=== PATIENT | female | born 1960 | race Caucasian/White ===

== ENCOUNTER 2017-02-17 12:26 | Inpatient (IN) | payer MEDICAID ==
[~2017-02-17] VITALS: Ht 165.1 cm; Wt 88.0 kg
--- NOTE | ~2017-02-17 | EC ---
PATIENT:JEFF BOJORQUEZ DATE OF SERVICE: 02/17/17 SEX: F MEDICAL RECORD: [id number] DATE OF : 56 LOCATION:D.MS Ling222 AGE OF PATIENT: 57 ADMISSION DATE: 02/17/17 REFERRING PHYSICIAN: INTERPRETING PHYSICIAN: KHALIF VELÁSQUEZ MD ECHOCARDIOGRAM REPORT ECHO CHARGES 4 ECHO COMPLETE CLINICAL DIAGNOSIS: CVA ECHOCARDIOGRAPHIC MEASUREMENTS (adult normal given) AC root (d.<3.7cm) 3.1 cm LV Septum d (<1.2 cm> 1.4 cm Valve Excursion 1.9 cm LV Septum (systole) 1.8 cm Left Atria (s.<4.0cm> 3.6 cm LVPW d(<1.2cm) 1.2 cm RV (d.<2.3cm) 2.9 cm LVPW (sytole) 1.6 cm LV diastole(<5.6CM) 4.8 cm MV E-F(>70mm/sec) cm LV systole 2.9 cm LVOT Diameter 1.9 cm MV exc.(>10mm) cm Est.ejection fraction (50-75%) % Pericardial Effusion N DOPPLER: LVIT cm/sec A 64.0 cm/sec E 91.0 cm/sec LA cm/sec RVSP 29.0 mmHg LVOT 94.0 cm/sec AOP1/2T 525.0m/s Asc. Ao 102 cm/sec RVOT 47.0 cm/sec RA cm/sec PA 85.0 cm/sec AV Gradient Peak 4.1 mmHg AV Mean 1.9 mmHg AV Area 2.3 cm MV Gradient Peak 3.8 mmHg MV Mean 1.1 mmHg MV Area cm COMMENTS: Machine Cell Tuber: 1 DANITA PLEITEZOE Cable Rigger: 4 Dr. Velásquez TAPE# PACS DATE OF SERVICE: 02/18/2017 PROCEDURE: Transthoracic echocardiogram. FINDINGS: 1. Left ventricle has evidence of left ventricular hypertrophy with normal inflow characteristics. Ejection fraction that is 55%. There are no obvious regional wall motion abnormalities. 2. The left atrium, normal size, normal function. 3. The mitral valve is not well visualized, but does appear to be grossly ECHOCARDIOGRAM REPORT [id number] JEFF BOJORQUEZ normal. 4. The tricuspid valve grossly normal. There is no obvious tricuspid regurgitation and RVSP is normal. 5. The right atrium is normal size, normal function. 6. The right ventricle is normal size, normal function. 7. Aortic valve appears to be a trileaflet structure with mild aortic regurgitation, otherwise normal. CONCLUSIONS: The patient with evidence of mild hypertensive heart disease with mild aortic insufficiency, otherwise normal function. TRANSINT:[id number] Voice Confirmation ID: [id number] DOCUMENT ID: [id number] 02/25/2017 Edited to correct date of service, dm. KHALIF VELÁSQUEZ MD at 1522 CC: [id number] DICTATION DATE: 02/21/17 0907 LUNG PULLER: 02/21/17 1350 DIS IN 02/22/17 [facility] [address] [place] [address]
[~2017-02-17 12:26] MED LIST: AMITRIPTYLINE100 MG PO; BAYER CHEWABLE81 MG PO; IBUPROFEN400 MG PO; LISINOPRIL2.5 MG PO; NORCO 7.5/325 T1 TA1 PO; PEPCID20 MG PO; XANAX1 MG PO; XARELTO15 MG PO; ZANAFLEX4 MG PO; ZOFRAN4 MG PO
[2017-02-17 13:06] LABS: BASOPHILS 0.4 % (0-2); EOSINOPHILS 3.1 % (0-7); HEMOGLOBIN 13.3 g/dL (12-16); IMMATURE GRANULOCYTES 0.4 % (0-5); LYMPHOCYTES 35.8 % (15-50); MCH 29.3 pg (26.0-34.0); MCHC 32.4 g/dL (31.0-37.0); MCV 90.3 fL (80.0-100.0); MEAN PLATELET VOLUME 9.5 fL (7.4-10.4); NEUTROPHILS 52.3 % (40-80); PLATELET COUNT 277 10x3/uL (130-400); RBC 4.54 10x6/uL (4.00-5.40); RDW 13.1 % (11.5-14.5); WBC 7.2 10x3/uL (4.8-10.8)
[2017-02-17 13:26] LABS: ALBUMIN 3.7 g/dL (3.4-5.0); ANION GAP 13.3 mmol/L (8-16); BILIRUBIN - TOTAL 0.24 mg/dL (0.2-1.3); CALCIUM 9.7 mg/dL (8.5-10.1); CARBON DIOXIDE 28.8 mmol/L (21.0-32.0); CREATININE - SERUM 1.3 mg/dL (0.6-1.3); POTASSIUM - SERUM 4.1 mmol/L (3.5-5.1); PROTEIN - SERUM 7.8 g/dL (6.4-8.2)
[2017-02-17 13:28] LABS: APTT 31.4 SECONDS (22.8-39.4); INR 1.14 (0.85-1.17); PROTIME 14.2 SECONDS (11.6-15.0)
[2017-02-17] MEDS ORDERED: XARELTO20 MG PO (19:27)
[2017-02-17] MEDS ORDERED: KEPPRA250 MG PO (19:27)
[2017-02-17] MEDS ORDERED: PHENERGAN25 M1 PO (19:28)
[2017-02-17 22:10] VITALS: BP 163/87; BMI 33.1
[2017-02-17 22:28] VITALS: BP 163/87
[2017-02-18 02:16] VITALS: BP 160/86
[2017-02-18 04:00] VITALS: BP 102/63
[2017-02-18 08:57] VITALS: BP 119/64
[2017-02-18 12:56] VITALS: BP 111/62
[2017-02-18 14:12] VITALS: Ht 165.1 cm; Wt 88.0 kg
[2017-02-18 14:36] LABS: HEMOGLOBIN A1C 6.9 % (4.8-6.0)
[2017-02-18 21:43] VITALS: BP 124/78
[2017-02-19 00:10] VITALS: BP 97/70
[2017-02-19 04:21] VITALS: BP 159/81
[2017-02-19 08:34] VITALS: BP 156/90
[2017-02-19 12:05] VITALS: BP 170/83
[2017-02-19 16:07] VITALS: BP 167/91
[2017-02-19 22:01] VITALS: BP 172/91
[2017-02-20] VITALS (7 sets, daily range): BP systolic 124–170; BP diastolic 75–95
[2017-02-21 04:29] VITALS: BP 166/89
[2017-02-21 08:44] VITALS: BP 180/90
[2017-02-21 12:34] VITALS: BP 162/92
[2017-02-21 17:18] VITALS: BP 175/99
[2017-02-21 21:17] VITALS: BP 173/84
[2017-02-22 00:44] VITALS: BP 164/78
[2017-02-22 06:49] VITALS: BP 163/89
[2017-02-22 08:45] VITALS: BP 184/98
[2017-02-22] MEDS ORDERED: ZESTRIL40 MG PO (09:31)
[2017-02-22] MEDS ORDERED: LOPRESSOR25 MG PO (09:31)
[2017-02-22] MEDS ORDERED: GLUCOPHAGE500 MG PO (09:33)
== END 2017-02-22 11:15 | disposition home or self-care (01) | DRG 65 ==
LOC: D.ER 12:26 → D.MS 16:39
PROVIDERS: Emergency Medicine; Family Medicine
DX: I63.9 Cerebral infarction, unspecified (principal); I69.951 Hemiplegia and hemiparesis following unspecified cerebrovascular disease affecting right dominant side; R13.10 Dysphagia, unspecified; R53.1 Weakness; R51 Headache; Z86.718 Personal history of other venous thrombosis and embolism; I11.0 Hypertensive heart disease with heart failure; I50.9 Heart failure, unspecified; M19.90 Unspecified osteoarthritis, unspecified site; E66.9 Obesity, unspecified; Z71.3 Dietary counseling and surveillance; Z68.33 Body mass index [BMI] 33.0-33.9, adult; R47.1 Dysarthria and anarthria; F41.9 Anxiety disorder, unspecified; G47.00 Insomnia, unspecified

== ENCOUNTER 2018-03-27 13:13 | Day surgery (SDC) | payer MEDICAID ==
[~2018-03-27] VITALS: Ht 165.1 cm; Wt 76.8 kg
[~2018-03-27 13:13] MED LIST changes: +GLUCOPHAGE500 MG PO; +KEPPRA250 MG PO; +LOPRESSOR25 MG PO; +PHENERGAN25 M1 PO; +XARELTO20 MG PO; +ZESTRIL40 MG PO
[2018-03-27 13:46] LABS: HEMATOCRIT 42.5 % (36.0-48.0); HEMOGLOBIN 14.2 g/dL (12-16); MCH 29.2 pg (26.0-34.0); MCHC 33.4 g/dL (31.0-37.0); MCV 87.4 fL (80.0-100.0); MEAN PLATELET VOLUME 9.3 fL (7.4-10.4); RBC 4.86 10x6/uL (4.00-5.40); RDW 13.1 % (11.5-14.5); WBC 12.4 10x3/uL (4.8-10.8)
[2018-03-27 13:52] LABS: ANION GAP 17.3 mmol/L (8-16); CALCIUM 10.2 mg/dL (8.5-10.1); CARBON DIOXIDE 24.7 mmol/L (21.0-32.0); CREATININE - SERUM 1.3 mg/dL (0.6-1.3)
[2018-03-27 15:31] LABS: APTT 27.5 SECONDS (22.8-39.4); INR 0.95 (0.85-1.17); PROTIME 12.2 SECONDS (11.6-15.0)
[2018-03-27] MEDS ORDERED: LISINOPRIL10 MG PO (16:00)
[2018-03-27 16:05] VITALS: BP 153/87; Ht 165.1 cm; Wt 76.8 kg
--- NOTE | 2018-03-27 16:37 | NUR ---
10-12 CRE BALLOON USED TO DIALTE ESOPHAGUS TIMES TWO ATTEMPTS.
--- NOTE | 2018-03-27 18:25 | NUR ---
[address] WHITING, REPORT GIVEN PT REPORTS A REGULAR HEADACHE RATES 08/16. DESIRES TO BE RELEASED HOME.
--- NOTE | 2018-03-29 09:41 | OP ---
PATIENT NAME: JEFF BOJORQUEZ MEDICAL RECORD: [id number] :56 LOCATION:[facility] ADMISSION DATE: SURGEON: ANGELA WHITING DO DATE OF OPERATION: 03/27/2018 PROCEDURE: EGD with biopsies and balloon dilation. INDICATION FOR PROCEDURE: Dysphagia, nausea and vomiting, generalized abdominal pain, and abnormal weight loss. SCOPE: Olympus video gastroscope. MEDICATIONS: Propofol 360 mg IV per anesthesia. ESTIMATED BLOOD LOSS: Minimal. COMPLICATIONS: None. FINDINGS: Informed consent was given. The patient was made comfortable with the above medication. After reaching an adequate level of sedation by slow IV push, the patient was placed on her left side. The endoscope was advanced under direct visualization through the mouth to the second portion of the duodenum. The upper third of the esophagus appeared normal. In the middle and distal thirds of the esophagus, there were severe erosive esophagitis with ulcerations present. There was a stricture located at 35 cm, which was approximately 8 mm in diameter and spanned only approximately a millimeter. The endoscope could not traverse the stricture prior to dilation. A CRE dilating balloon was placed through the working channel and across the stricture. The stricture was dilated with a 10-12 mm dilating balloon up to 12 mm successfully. Cold forceps biopsies were taken from the stricture. The endoscope was able to traverse the stricture after dilation. At the GE junction, there was some granulation tissue, which was biopsied to submit for histopathology. The endoscope was advanced beyond GE junction into the stomach and retroflexed to view the cardia, which appeared normal. The patient has had previous surgery involving the stomach in the form of gastric bypass, which has since been reversed. This was evident as there appeared to be gastrogastric anastomosis. There was some granulation tissue at this site, which was biopsied to submit for histopathology. As the endoscope was advanced into the antrum of the actual stomach, the mucosa appeared normal. Random cold forceps biopsies were taken to submit for histopathology and to rule out the presence of H. pylori. The endoscope was advanced into the duodenum, which appeared normal down to the second portion. The endoscope was then withdrawn back into the stomach. The 10-12 mm dilating balloon was then placed through the working channel again and the endoscope was pulled back up into the esophagus. The stricture was again dilated to 12 mm. Dilation was successful. The endoscope and catheter were then withdrawn from the patient. The patient tolerated the procedure well and there were no complications. IMPRESSIONS: 1. Severe erosive esophagitis with ulcerations present in the middle and distal thirds of the esophagus. 2. Esophageal stricture located at 35 cm. This was dilated to 12 mm successfully and biopsied with cold forceps. 3. Evidence of prior intervention involving the stomach. 4. Granulation tissue located at the anastomosis from previous surgery, which OPERATIVE REPORT [id number] ALINA BOJORQUEZALEJO OLIVEROS was biopsied. PLAN AND RECOMMENDATIONS: 1. Discharge home when recovery parameters are met. 2. Follow up biopsy specimen results. 3. GERD diet and reflux precautions. 4. We will initiate omeprazole 40 mg daily and Carafate 1 gram t.i.d. 5. We will plan on a repeat upper endoscopy in 3-4 weeks with repeat dilation to extend the diameter of the stricture in the distal esophagus. 6. Further biopsies will be taken at that time of any inflammation present. TRANSINT:[id number] Voice Confirmation ID: [id number] DOCUMENT ID: [id number] ANGELA WHITING DO at 0941 CC: [id number] DICTATION DATE: 03/27/18 1650 CAREER DEVELOPMENT SPECIALIST: 03/27/18 2340 [facility] 03/27/18 [facility] [address] [place] [address]
== END 2018-03-27 18:45 | disposition home or self-care (01) ==
LOC: D.OPS 13:13
PROVIDERS: Anesthesiology
DX: R13.10 Dysphagia, unspecified (principal); K22.10 Ulcer of esophagus without bleeding; K22.2 Esophageal obstruction; Z01.812 Encounter for preprocedural laboratory examination

== ENCOUNTER 2018-04-17 08:54 | Day surgery (SDC) | payer MEDICAID ==
[~2018-04-17] VITALS: Ht 165.1 cm; Wt 77.3 kg
[~2018-04-17 08:54] MED LIST changes: +LISINOPRIL10 MG PO
[2018-04-17 09:14] LABS: HEMATOCRIT 40.5 % (36.0-48.0); HEMOGLOBIN 13.4 g/dL (12-16); MCH 29.1 pg (26.0-34.0); MCHC 33.1 g/dL (31.0-37.0); MCV 87.9 fL (80.0-100.0); MEAN PLATELET VOLUME 8.9 fL (7.4-10.4); RBC 4.61 10x6/uL (4.00-5.40); RDW 13.2 % (11.5-14.5); WBC 12.5 10x3/uL (4.8-10.8)
[2018-04-17 09:27] LABS: APTT 27.2 SECONDS (22.8-39.4); INR 1.02 (0.85-1.17); PROTIME 12.9 SECONDS (11.6-15.0)
[2018-04-17 09:28] LABS: ANION GAP 17.2 mmol/L (8-16); CALCIUM 9.2 mg/dL (8.5-10.1); CARBON DIOXIDE 25.6 mmol/L (21.0-32.0); CREATININE - SERUM 1.4 mg/dL (0.6-1.3); POTASSIUM - SERUM 3.8 mmol/L (3.5-5.1)
[2018-04-17] MEDS ORDERED: CARAFATE1 G (09:30)
[2018-04-17 09:36] VITALS: BP 119/88; Ht 165.1 cm; Wt 77.3 kg
--- NOTE | 2018-04-17 11:57 | NUR ---
DC INSTRUCTIONS GIVEN TO PT/FAMILY. STATE UNDERSTANDING. DC'D IV CATH FULLY INTACT.
--- NOTE | 2018-04-17 12:01 | NUR ---
PT LEFT UNIT VIA WC AT 1201
--- NOTE | 2018-04-18 12:17 | OP ---
PATIENT NAME: JEFF BOJOQRUEZ MEDICAL RECORD: [id number] :56 LOCATION:[facility] ADMISSION DATE: SURGEON: ANGELA WHITING DO DATE OF OPERATION: 04/17/2018 PROCEDURE: EGD with balloon dilation and biopsies. INDICATION FOR PROCEDURE: Dysphagia, nausea and vomiting, generalized abdominal pain, and abnormal weight loss. SCOPE: Olympus video gastroscope. MEDICATIONS: Propofol 180 mg IV per anesthesia. ESTIMATED BLOOD LOSS: Minimal. COMPLICATIONS: None. FINDINGS: Informed consent was given. The patient was made comfortable with the above medication. After reaching adequate level of sedation by slow IV push, the patient was placed on her left side. The endoscope was advanced under direct visualization through the mouth to the second portion of the duodenum. The upper third of the esophagus appeared normal. In middle and distal thirds of the esophagus, there was severe erosive esophagitis with ulcerations present. There was significant sloughing of esophageal mucosa. There was a stricture located at 35 cm, which the endoscope could not pass prior to dilation. A 13.5-15.5 CRE dilating balloon was placed through the working channel of the endoscope and the stricture was dilated up to 13.5 mm successfully. This allowed the endoscope to pass the site into the stomach. There was evidence of prior intervention in the stomach. There was some erythema and granularity, consistent with gastritis in the stomach. The endoscope was advanced into the duodenum, which appeared normal. The endoscope was then withdrawn back into the esophagus and biopsies were taken from the stricture itself. The endoscope was withdrawn from the patient. The patient tolerated the procedure well and there were no complications. IMPRESSION: 1. Severe erosive esophagitis with ulcerations in middle and distal thirds of the esophagus. 2. Significant amount of sloughing tissue of the esophageal mucosa. 3. Esophageal stricture located at 35 cm. This was dilated to 13.5 mm on today's examination. Previously, this site was dilated to 12 mm. 4. There was a hiatal hernia visualized involving the cardia of the stomach. 5. Evidence of prior intervention in the stomach. 6. Gastritis. PLANS AND RECOMMENDATIONS: 1. Discharge home when recovery parameters are met. 2. Follow up biopsy specimen results. 3. GERD diet and reflux precautions. 4. Repeat EGD in 2 weeks with further dilation as indicated. 5. Continue current medications. TRANSINT:[id number] Voice Confirmation ID: [id number] DOCUMENT ID: [id number] OPERATIVE REPORT [id number] JEFF BOJORQUEZ,ANGELA Chan DO at 1217 CC: [id number] DICTATION DATE: 04/17/18 1100 AIR TECHNICIAN: 04/17/18 1216 [facility] 04/17/18 [place] [id number]
== END 2018-04-17 12:01 | disposition home or self-care (01) ==
LOC: D.OPS 08:54
PROVIDERS: Anesthesiology; ATTEND Internal Medicine Gastroenterology
DX: K22.10 Ulcer of esophagus without bleeding (principal); K44.9 Diaphragmatic hernia without obstruction or gangrene; K22.2 Esophageal obstruction; K29.70 Gastritis, unspecified, without bleeding; Z01.812 Encounter for preprocedural laboratory examination

== ENCOUNTER → 2018-05-03 09:12 | Day surgery (SDC) | payer MEDICAID ==
[~2018-05-03] VITALS: Ht 165.1 cm; Wt 75.9 kg
--- NOTE | ~2018-05-03 | OP ---
PATIENT NAME: JEFF BOJORQUEZ MEDICAL RECORD: [id number] :56 LOCATION:[facility] ADMISSION DATE: SURGEON: ANGELA WHITING DO DATE OF OPERATION: 05/03/2018 PROCEDURE: EGD with balloon dilation of the esophagus. INDICATION FOR PROCEDURE: Dysphagia and a known stricture of the esophagus. This is a 2-week follow up for further dilation. SCOPE: Olympus video gastroscope. MEDICATIONS: Propofol 150 mg IV per anesthesia. ESTIMATED BLOOD LOSS: Minimal. COMPLICATIONS: None. FINDINGS: Informed consent was given. The patient was made comfortable with the above medication. After reaching an adequate level of sedation by slow IV push, the patient was placed on her left side. The endoscope was advanced under direct visualization through the mouth to the second portion of the duodenum with ease. The upper and middle thirds of the esophagus appeared normal. In the distal third of the esophagus at approximately 35 cm, the previously identified stricture was again encountered. The endoscope was able to traverse the site prior to balloon dilation. The previously identified severe erosive esophagitis with ulcerations has improved significantly. There were no ulcers present on today's examination. There was no sloughing of esophageal mucosa seen either. There was evidence of reflux esophagitis. The endoscope was advanced into the stomach and retroflexed to view the cardia and fundus. There was evidence of prior intervention with proximal and distal gastric pouches. The mucosa of the stomach reveals erythema and granularity, consistent with gastritis. The endoscope was advanced beyond the pylorus into the duodenum, which appeared normal down to the second portion. The endoscope was then withdrawn back into the stomach. A 13.5- to 15.5-cm CRE dilating balloon was placed through the working channel. The endoscope was brought back up to the stricture and this was dilated up to 15 mm maximum diameter successfully. The balloon was then removed from the endoscope. The site was inspected. There was a small mucosal tear visualized. There was no significant bleeding. The endoscope was then withdrawn from the patient. The patient tolerated the procedure well and there were no complications. IMPRESSION: 1. Esophageal stricture located at 35 cm. This was dilated to 15 mm diameter on today's examination. 2. Reflux esophagitis. 3. Prior intervention in the stomach. 4. Gastritis. PLAN AND RECOMMENDATIONS: 1. Discharge home when recovery parameters are met. 2. GERD diet and reflux precautions. 3. Continue current medications. 4. Repeat EGD in 2-3 weeks for further dilations as indicated. OPERATIVE REPORT [id number] JEFF BOJORQUEZ TRANSINT:[id number] Voice Confirmation ID: [id number] DOCUMENT ID: [id number] ANGELA WHITING DO CC: [id number] DICTATION DATE: 05/03/18 1308 MORNING SHOW HOST: 05/03/18 1511 [address] [place] [id number] [place] [address]
[~2018-05-03 09:12] MED LIST changes: +CARAFATE1 G PO
[2018-05-03 10:11] VITALS: BP 144/78; Ht 165.1 cm; Wt 75.9 kg
[2018-05-03 10:17] LABS: HEMATOCRIT 40.9 % (36.0-48.0); HEMOGLOBIN 13.5 g/dL (12-16); MCH 29.2 pg (26.0-34.0); MCV 88.5 fL (80.0-100.0); MEAN PLATELET VOLUME 9.7 fL (7.4-10.4); RBC 4.62 10x6/uL (4.00-5.40); RDW 13.4 % (11.5-14.5); WBC 8.8 10x3/uL (4.8-10.8)
--- NOTE | 2018-05-03 12:53 | NUR ---
1252-13.5-15.5 CRE BALLOON USED INFLATE 43 CITIZEN OF [place].
--- NOTE | 2018-05-03 14:23 | NUR ---
IV D/C'D WITH CANNULA INTACT. VSS. NO COMPLAINTS. DISCHARGE INSTRUCTIONS GIVEN. VERBALIZED AN UNDERSTANDING
== END | disposition home or self-care (01) ==
LOC: D.OPS 09:12
PROVIDERS: ATTEND Internal Medicine Gastroenterology
DX: K22.2 Esophageal obstruction (principal); K21.0 Gastro-esophageal reflux disease with esophagitis; K29.70 Gastritis, unspecified, without bleeding; Z01.812 Encounter for preprocedural laboratory examination

== ENCOUNTER 2018-05-17 10:01 | Day surgery (SDC) | payer MEDICAID ==
[~2018-05-17] VITALS: Ht 165.1 cm; Wt 77.3 kg
[2018-05-17 10:21] LABS: HEMATOCRIT 39.9 % (36.0-48.0); HEMOGLOBIN 13.2 g/dL (12-16); MCH 28.6 pg (26.0-34.0); MCHC 33.1 g/dL (31.0-37.0); MCV 86.4 fL (80.0-100.0); MEAN PLATELET VOLUME 9.2 fL (7.4-10.4); RBC 4.62 10x6/uL (4.00-5.40); RDW 13.1 % (11.5-14.5); WBC 9.9 10x3/uL (4.8-10.8)
[2018-05-17 10:31] LABS: ANION GAP 12.3 mmol/L (8-16); CALCIUM 9.7 mg/dL (8.5-10.1); CARBON DIOXIDE 29.9 mmol/L (21.0-32.0); CREATININE - SERUM 0.9 mg/dL (0.6-1.3); POTASSIUM - SERUM 4.2 mmol/L (3.5-5.1)
[2018-05-17 10:36] VITALS: Ht 165.1 cm; Wt 77.3 kg
--- NOTE | 2018-05-17 14:01 | OP ---
PATIENT NAME: JEFF BOJORQUEZ MEDICAL RECORD: [id number] :56 LOCATION:[facility] ADMISSION DATE: SURGEON: ANGELA WHITING DO DATE OF OPERATION: 05/17/2018 PROCEDURE: EGD with balloon dilation. INDICATIONS FOR PROCEDURE: Dysphagia and a known esophageal stricture. SCOPE: Olympus video gastroscope. MEDICATIONS: Propofol 180 mg IV per anesthesia. ESTIMATED BLOOD LOSS: Minimal. COMPLICATIONS: None. FINDINGS: Informed consent was given. The patient was made comfortable with the above medication. After reaching an adequate level of sedation by slow IV push, the patient was placed in the left side. The endoscope was advanced under direct visualization through the mouth to the second portion of the duodenum with ease. The upper and middle thirds of the esophagus appeared normal. In the distal third of the esophagus at approximately 35 cm, the previously identified stricture was again encountered. The endoscope was able to traverse the site prior to balloon dilation. The previously identified reflux esophagitis was present. There were no ulcers located at the GE junction on today's examination. The endoscope was advanced into the stomach and retroflexed to view the cardia and fundus. There was evidence of a prior intervention with proximal and distal gastric pouches. The mucosa of the stomach had some erythema and granularity consistent with possible gastritis. This has been biopsied multiple times in the past and has been benign. The endoscope was advanced beyond the pylorus into the duodenum which appeared normal down to the second portion. The endoscope was then withdrawn back into the stomach and a 16-18 mm CRE dilating balloon was placed through the working channel. The endoscope was brought back up into the stricture site and the balloon was passed across the stricture. The stricture was dilated up to 17 mm maximum diameter successfully. The balloon was then removed from the endoscope. The site was inspected. There was no significant bleeding. The endoscope was then withdrawn from the patient. The patient tolerated the procedure well and there were no complications. IMPRESSION: 1. Esophageal stricture located at 35 cm. This was dilated to 17 mm successfully. 2. Reflux esophagitis. 3. Prior intervention in the stomach. 4. Gastritis. PLAN AND RECOMMENDATIONS: 1. Discharge home when recovery parameters are met. 2. GERD diet and reflux precautions. 3. Continue current medications. 4. Repeat EGD as needed for dysphagia. TRANSINT:[id number] Voice Confirmation ID: [id number] DOCUMENT ID: [id number] OPERATIVE REPORT [id number] JEFF BOJORQUEZ,ANGELA Chan DO at 1401 CC: [id number] DICTATION DATE: 05/17/181211 CHAIRMAN AND CHIEF EXECUTIVE OFFICER: 05/17/18 1242 [facility] [place] [id number] [place] [id number]
== END 2018-05-17 13:00 | disposition home or self-care (01) ==
LOC: D.OPS 10:01
PROVIDERS: Anesthesiology; ATTEND Internal Medicine Gastroenterology
DX: K22.2 Esophageal obstruction (principal); K21.0 Gastro-esophageal reflux disease with esophagitis; K29.70 Gastritis, unspecified, without bleeding; Z01.812 Encounter for preprocedural laboratory examination

== ENCOUNTER 2018-06-12 08:52 | Inpatient (IN) | payer MEDICAID ==
[2018-06-09 11:26] LABS: HEMATOCRIT 38.7 % (36.0-48.0); HEMOGLOBIN 13.1 g/dL (12-16); MCH 28.7 pg (26.0-34.0); MCHC 33.9 g/dL (31.0-37.0); MCV 84.7 fL (80.0-100.0); MEAN PLATELET VOLUME 9.4 fL (7.4-10.4); RBC 4.57 10x6/uL (4.00-5.40); RDW 12.8 % (11.5-14.5); WBC 15.9 10x3/uL (4.8-10.8)
[2018-06-09 11:29] LABS: ANION GAP 16.2 mmol/L (8-16); CALCIUM 9.5 mg/dL (8.5-10.1); CARBON DIOXIDE 24.9 mmol/L (21.0-32.0); POTASSIUM - SERUM 4.1 mmol/L (3.5-5.1)
[2018-06-09 11:31] LABS: APTT 27.4 SECONDS (22.8-39.4); INR 0.99 (0.85-1.17); PROTIME 12.6 SECONDS (11.6-15.0)
[2018-06-12] VITALS (13 sets, daily range): BP systolic 73–139; BP diastolic 51–92; BMI 27.8; BMI 28.3
--- NOTE | 2018-06-12 13:40 | NUR ---
RECEIVED TO ROOM 2210 VIA BED FROM PACU. A/O X3. VSS. C/O NAUSEA AT THIS TIME. WILL MONITOR.
--- NOTE | 2018-06-12 14:30 | NUR ---
BP CONTINUES TO FALL. DR. GUARDADO NOTIFIED OF SAME. NEW ORDERS RECEIVED. BOLUS INITIATED.
--- NOTE | 2018-06-12 14:30 | OP ---
PATIENT NAME: JEFF BOJORQUEZ MEDICAL RECORD: [id number] :56 LOCATION:D.MS [id number] ADMISSION DATE: SURGEON: EDNA GUARDADO MD DATE OF OPERATION: 06/12/2018 SURGEON: Edna Guardado MD LOG BUNCHER: Yoselin Camarena. PREOPERATIVE DIAGNOSES: 1. Dysphagia, esophageal stricture, severe protein malnutrition, history of multiple bariatric operations. 2. History of pulmonary embolism. 3. Diabetes. POSTOPERATIVE DIAGNOSES: 1. Dysphagia, esophageal stricture, severe protein malnutrition, history of multiple bariatric operations. 2. History of pulmonary embolism. 3. Diabetes. PROCEDURE PERFORMED: 1. Laparoscopic lysis of adhesions requiring greater than 50% of the operative time due to 2 previous open gastric bariatric procedures. 2. Mika gastrostomy with gastrojejunostomy feeding tube placement. ANESTHESIA: General. COMPLICATIONS: None. Case was clean contaminated. ESTIMATED BLOOD LOSS: 300 mL. OPERATIVE COURSE: After consent was obtained, the patient was taken to the operating room and placed in the supine position on the operating table. Next, general anesthesia was given via endotracheal intubation. After a timeout was taken to confirm the correct patient and procedure, local anesthetic was injected into the right upper quadrant. A stab incision was made with 11-blade scalpel. Using a 5-mm bladeless optical trocar, the abdomen was entered under direct laparoscopic vision. Adequate pneumoperitoneum was achieved. There was dense adhesive disease throughout the midline and upper abdomen. A second 5-mm trocar was placed under direct laparoscopic vision into the right lateral quadrant. Laparoscopic lysis of adhesions was performed using laparoscopic Metzenbaum scissors and Harmonic scalpel. Once the midline was clear, a 12-mm trocar was placed just above the umbilicus under direct laparoscopic vision and an additional 5-mm trocar was placed in the left lateral quadrant. Extensive adhesiolysis was performed continuing to identify the gastric anatomy. The anterior surface of the stomach was freed from the posterior surface of the liver all the way to the level of the crura. At this time, the transverse mesocolon was retracted cephalad. The small bowel anatomy could not be defined at this time. The patient appears to have had a previous retrocolic gastric bypass. She had a gastric bypass reversal 3 years later. There were 2 portions of small bowel coming through the transverse mesocolon. It was unable to tell which of these was the true ligament of Treitz. The loops were followed into OPERATIVE REPORT [id number] JEFF BOJORQUEZWallace the mid portion of small bowel, at which time a jejunojejunostomy was identified. At this time, due to the nondelineated anatomy a gastrojejunostomy was not performed. A small upper midline incision was made with a 10-blade scalpel. Dissection at the level to the subcutaneous tissue was with electrocautery. The fascia was opened with electrocautery. At this time, the pneumoperitoneum was relieved. The anterior surface of the stomach was grabbed with a Tracy clamp. Pursestring sutures were placed into the anterior surface of the stomach with 2-0 silk sutures. A gastrotomy was made with electrocautery. A gastrojejunostomy tube was placed to the left upper quadrant. It was advanced through the gastrotomy and directly placed through the pylorus. The gastrojejunostomy was advanced through the duodenum. The pursestring sutures were tied. The balloon was inflated. The stomach was secured to the anterior abdominal wall using 2-0 silk suture. The fascia was then closed with looped PDS. The skin was closed with skin laura. The scope was reinserted in the abdomen. The abdominal cavity was inspected. It was copiously irrigated and suctioned. There was no evidence of bowel injury. No evidence of bleeding. At this time, all remaining instruments were removed. The abdomen was desufflated. Trocars were removed. Skin was closed with 4-0 Monocryl. Remaining trocar sites were closed with laura. At the end of the case, all needle and instrument counts were correct. No complications occurred. The patient was extubated and transferred to the PACU in stable condition. TRANSINT:[id number] Voice Confirmation ID: [id number] DOCUMENT ID: [id number] EDNA GUARDADO MD at 1430 CC: [id number] DICTATION DATE: 06/12/18 1236 ENVIRONMENTAL COORDINATOR: 06/12/18 1330 REG [facility] [address] [place] [address]
[2018-06-12 15:44] LABS: HEMATOCRIT 26.3 % (36.0-48.0); HEMOGLOBIN 8.7 g/dL (12-16)
--- NOTE | 2018-06-12 15:45 | NUR ---
BP CONTINUES TO FALL WITH BOLUS DOSE UP. RAPID RESPONSE CALLED. WILL MONITOR.
--- NOTE | 2018-06-12 16:10 | NUR ---
TRANSFERRED TO CVICU VIA BED.
--- NOTE | 2018-06-12 16:15 | NUR ---
PT ARRIVED IN THE UNIT. PT SKIN COLOR PALE. PT ON 6L VIA NC. CVL NOTED TO RIGHT SUBCLAVIAN CVL NOTED. DRESSING C/D/I. FLUID BOLUSES INFUSING ON ARRIVAL. DRIVING NOTED OVER ABD C/D/I WITH A FEEDING TUBE STICKING OUT OF THE DRESSING. ABD ROUND AND SOFT. PT HYPOTENSIVE AND BRADYCADIC. BLOOD PRODUCTS WARMING AND WILL BE TRANSFFUSED MAHNAZ. PT HOOKED TO ICU MONITORS. WILL CONT POC.
--- NOTE | 2018-06-12 16:41 | NUR ---
FIRST BLOOD PRODUCT CHECKED WITH ANOTHER NURSE. PT GAVE VERBAL CONSENT TO ACCEPT BLOOD PRODUCTS. PRBC INFUSING.
--- NOTE | 2018-06-12 16:44 | NUR ---
SPOKE WITH DR GUARDADO, ORDERS FOR TOTAL OF 4 PRBCS, 2 FFP, 1 PLATELETS, SPOKE WITH DR EARL, ORDERS FOR PT INR AND PTT, SPOKE WITH LAB AND ADDED ON TO LAST LAB DRAW
--- NOTE | 2018-06-12 16:55 | NUR ---
SPOKE WITH DR SHIRA RAMSAY AND UPDATED HER ON THE PTS CONDITION. CONT CURRENT POC WITH BLOOD.
[2018-06-12 17:13] LABS: APTT 27.7 SECONDS (22.8-39.4); INR 1.44 (0.85-1.17); PROTIME 16.9 SECONDS (11.6-15.0)
--- NOTE | 2018-06-12 17:20 | NUR ---
1 UNIT OF BLOOD STILL INFUSING. BP 49/21. 2 UNIT INITIATED AND PRESSURE BAG APPLIED. BP RECHECKED AND SBP WOULD NO REGISTAR. PT PALE IN COLOR AND COOL. HR 120. DR GUARDADO PAGED AND YARD CLEANER CALLED TO GET THE REMAININ PRBC'S. DR GUARDADO STATED TO GET THE PT TO THE OR NOW. YARD CLEANER ARRIVED. BLOOD PRODUCTS SENT TO THE OR WITH THE OR TEAM.
--- NOTE | 2018-06-12 18:44 | NUR ---
DR. GUARDADO LEFT 7 LAPS IN FOR PACKING
--- NOTE | 2018-06-12 20:30 | NUR ---
PAGED R/T ABG RESULTS, UPDATE GIVEN, ORDERS RECEIVED 150MEQ BICARB IN 1L D5W TO INFUSE AT 70ML/HR, NO FURTHER AT THIS TIME
--- NOTE | 2018-06-12 21:00 | NUR ---
AT BEDSIDE, UPDATE GIVEN
--- NOTE | 2018-06-12 21:44 | NUR ---
PAGED R/T PO MEDS, STATED TO HOLD PO MEDS, DO NOT USE GASTRIC TUBE UNTIL VERIFIES IT IS OKAY TO USE
[2018-06-12 22:39] LABS: HEMATOCRIT 28.9 % (36.0-48.0); HEMOGLOBIN 9.9 g/dL (12-16)
[2018-06-13] VITALS (24 sets, daily range): BP systolic 90–136; BP diastolic 50–74; BMI 35.2
[2018-06-13 05:14] LABS: BASOPHILS 0.1 % (0-2); EOSINOPHILS 0 % (0-7); HEMATOCRIT 26.5 % (36.0-48.0); HEMOGLOBIN 9.1 g/dL (12-16); IMMATURE GRANULOCYTES 0.5 % (0-5); LYMPHOCYTES 12.4 % (15-50); MCH 29.4 pg (26.0-34.0); MCHC 34.3 g/dL (31.0-37.0); MCV 85.8 fL (80.0-100.0); MEAN PLATELET VOLUME 9.4 fL (7.4-10.4); MONOCYTES 7.7 % (2-11); NEUTROPHILS 79.3 % (40-80); RBC 3.09 10x6/uL (4.00-5.40); RDW 14.1 % (11.5-14.5); WBC 11.1 10x3/uL (4.8-10.8)
[2018-06-13 05:28] LABS: PLATELET COUNT 148 10x3/uL (130-400)
--- NOTE | 2018-06-13 05:36 | NUR ---
PAGED R/T LAB RESULTS AND PT HR 140'S, UPDATE GIVEN, ORDERS RECEIVED FOR 5MG METOPROLOL, STATED " IF METOPROLOL DOESN'T WORK, THEN START ON CARDIZEM DRIP", NO FURTHER AT THIS TIME
[2018-06-13 05:42] LABS: ANION GAP 15.3 mmol/L (8-16); CARBON DIOXIDE 21.5 mmol/L (21.0-32.0); CREATININE - SERUM 1.1 mg/dL (0.6-1.3); POTASSIUM - SERUM 4.8 mmol/L (3.5-5.1)
--- NOTE | 2018-06-13 07:50 | NUR ---
DR. GUARDADO NOTIFIED OF HR BEING 130S. ORDERED CARCIZEM 5ML/HR.
[2018-06-13 07:54] LABS: MAGNESIUM - SERUM 1.2 mg/dL (1.8-2.4)
--- NOTE | 2018-06-13 08:08 | NUR ---
SON AT BEDSIDE. CONSENT FORM FOR SCHEDULED PROCEDURE SIGNED AT THIS TIME.
--- NOTE | 2018-06-13 08:15 | OP ---
PATIENT NAME: JEFF BOJORUQEZ MEDICAL RECORD: [id number] :56 LOCATION:[id number] ADMISSION DATE:06/12/18 SURGEON: EDNA GUARDADO MD DATE OF OPERATION: 06/12/2018 PREOPERATIVE DIAGNOSES: Hemorrhagic shock. POSTOPERATIVE DIAGNOSIS: Hemorrhagic shock. PROCEDURE PERFORMED: Abdominal exploratory laparotomy, washout of intra-abdominal hematoma, control of intra-abdominal hematoma with packing. ANESTHESIA: General. COMPLICATIONS: Diffuse bleeding. ESTIMATED BLOOD LOSS: 2 liters. Case was clean contaminated. OPERATIVE COURSE: The patient developed significant postoperative hemorrhagic shock. The patient was taken back to the operating room emergently. The upper midline abdominal incision was opened and extended using a combination of 10 blade scalpel and electrocautery. All 4 quadrants of the abdomen were packed. The packs were removed in sequence from the left upper quadrant to the right upper quadrant, the packs removed. Approximately 2 liters of blood removed. There were no active visible bleeding vessels. There was significant surface bleeding from the posterior surface of the liver and the anterior surface of the stomach and all the areas from the previous laparoscopic lysis of adhesions. The active areas of bleeding were packed and held for 10 minutes, the packs were removed. Within several minutes, there was again diffuse surface bleeding noted from the posterior surface of the liver and the anterior surface of the stomach and omental tissue involved in the previous area of dissection. The patient had held her Xarelto preoperatively for approximately 3 days. The hemorrhage was attempted to be controlled with combination of electrocautery and Surgicel and Nu-Knit. Again, these were applied and the abdomen was packed. We waited 10 minutes, removed the packs and again within several minutes, all surfaces of the involved areas were again diffusely oozing. At this time, decided it was best to leave the all areas of previous dissection packed. The abdominal cavity was packed with 7 laparotomy sponges. Skin was closed with laura. The patient was transferred to the intensive care unit in hemodynamically stable condition. She did receive mass transfusion protocol during the operation with a plan for return to the or tomorrow for delayed abdominal closure and removal of abdominal packing. TRANSINT:[id number] Voice Confirmation ID: [id number] DOCUMENT ID: [id number] OPERATIVE REPORT [id number] JEFF BOJORQUEZ EDNA GUARDADO MD at 0815 CC: [id number] DICTATION DATE: 06/12/181946 CLEANING STAFF SUPERVISOR: 06/12/18 2334 ADM IN [place] [id number] [place] [id number]
--- NOTE | 2018-06-13 09:08 | NUR ---
EKG ACQUIRED AT THIS TIME PER DR. ZAMORANO. SINUS TACHY IN 120S. CARDIZEM DRIP TURNED OFF PER DR. ZAMORANO. 25MCG FENTANYL BOLUS GIVEN FOR PAIN PER. DR. ZAMORANO. FAMILY AT BEDSIDE. 5MG IV LOPRESSOR GIVE PER DR. ZAMORANO. WILL CONTINUE TO MONITOR.
[2018-06-13 11:09] LABS: HEMATOCRIT 25.2 % (36.0-48.0); HEMOGLOBIN 8.9 g/dL (12-16)
--- NOTE | 2018-06-13 11:09 | NUR ---
H&H AND LACTIC ACID COLLECTED FROM CVL AT THIS TIME. SENT TO LAB.
[2018-06-13 11:53] LABS: APTT 23.5 SECONDS (22.8-39.4); INR 1.3 (0.85-1.17); PROTIME 15.6 SECONDS (11.6-15.0)
--- NOTE | 2018-06-13 12:12 | NUR ---
DR. GUARDADO NOTIFIED OF H&H 8.9 AND 25.2, BP 81/45 MAP 63. ORDERED 2 UNITS OF PRBC'S TO BE TRANSFUSSED AND TO KEEP FLUIDS AT 100ML/HR.
--- NOTE | 2018-06-13 13:17 | NUR ---
BICARB GIVEN PER DR. GUARDADO ORDERS. LR BOLUS INFUSING AT THIS TIME. CURRENT BP 115/58.
--- NOTE | 2018-06-13 14:35 | NUR ---
1ST UNIT OF PRBC'S INITIATED AT THIS TIME PER ORDERS.
--- NOTE | 2018-06-13 15:55 | NUR ---
DR. ZAMORANO NOTIFIED OF LACTIC ACID RESULTS AT THIS TIME.
--- NOTE | 2018-06-13 16:52 | NUR ---
PT CONTINUES AGITATED AFTER FENTANYL WAS INCREASED. VERSED GIVEN PER ORDERS. WILL CONTINUE TO MONITOR.
--- NOTE | 2018-06-13 17:26 | NUR ---
SECOND UNIT OF PRBC'S INFUSING AT THIS TIME. VEFIFIED PER PROTOCOL.
--- NOTE | 2018-06-13 21:00 | NUR ---
DR.TUCKER ODONNELL R/T INCREASED PT TEMPERATURE 100.8 DEG
--- NOTE | 2018-06-13 21:50 | NUR ---
CALLED ICU BACK FOR , UPDATE GIVEN, ORDERS RECEIVED; BLOOD CULTURES x2, UA AND URIN CULTURE, TYLENOL SUP FOR TEMPS ABOVE 100.3 DEG, 4g MAGNESIUM SULFATE IV.
--- NOTE | 2018-06-13 23:30 | NUR ---
CALLED ICU, UPDATE GIVEN, ORDERS RECEIVED
[2018-06-13 23:37] LABS: APPEARANCE CLEAR (CLEAR); BILIRUBIN NEGATIVE (NEGATIVE); COLOR YELLOW (YELLOW); GLUCOSE NEGATIVE (NEGATIVE); KETONE SMALL mg/dL (NEGATIVE); NITRITE NEGATIVE (NEGATIVE); PH 6.5 (5.0-6.0); PROTEIN NEGATIVE (NEGATIVE); UROBILINOGEN NORMAL (NORMAL)
[2018-06-13 23:44] LABS: BACTERIA FEW /hpf (NONE SEEN); EPITHELIAL CELLS OCC /hpf (0-5); RED CELLS - URINE 0-5 /hpf (0-5); WHITE CELLS - URINE RARE /hpf (0-5)
[2018-06-14] VITALS (28 sets, daily range): BP systolic 97–162; BP diastolic 40–85
--- NOTE | 2018-06-14 05:00 | NUR ---
COMPLETE BED BATH, LINEN CHANGE, AND NEW GOWN, CHLORHEXIDINE BATH GIVEN, LINES SECURED, SINUS TACH ON CM, OTHER VSS, PT BECOMES ANXIOUS QUICKLY ABLE TO CALM PT AND REORIENT TO SITUATION, PT C/O ABDOMINAL INCISIONAL PAIN, REPOSITIONED AND MEDS GIVEN PER MAR, WILL CONTINUE TO MONITOR
[2018-06-14 05:17] LABS: BASOPHILS 0 % (0-2); EOSINOPHILS 0 % (0-7); HEMATOCRIT 24.7 % (36.0-48.0); HEMOGLOBIN 8.6 g/dL (12-16); IMMATURE GRANULOCYTES 0.3 % (0-5); LYMPHOCYTES 21.6 % (15-50); MCHC 34.8 g/dL (31.0-37.0); MEAN PLATELET VOLUME 9.2 fL (7.4-10.4); MONOCYTES 8.2 % (2-11); NEUTROPHILS 69.9 % (40-80); RBC 2.97 10x6/uL (4.00-5.40); RDW 15.4 % (11.5-14.5)
[2018-06-14 05:41] LABS: ANION GAP 10.9 mmol/L (8-16); CARBON DIOXIDE 26.7 mmol/L (21.0-32.0); CREATININE - SERUM 0.9 mg/dL (0.6-1.3)
[2018-06-14 05:48] LABS: MCV 83.2 fL (80.0-100.0); PLATELET COUNT 104 10x3/uL (130-400); WBC 6.4 10x3/uL (4.8-10.8)
[2018-06-14 05:49] LABS: POTASSIUM - SERUM 3.6 mmol/L (3.5-5.1)
--- NOTE | 2018-06-14 05:50 | NUR ---
CALLED R/T LAB RESULTS, UPDATE GIVEN, INFORMED OF Hgb&Hct NO NEW ORDERS AT THIS TIME, WILL CONTINUE TO MONITOR,
--- NOTE | 2018-06-14 07:00 | NUR ---
PT RECIEVED ALERT, ON VENT, R SUBCLAVIAN CVL DRESSING CDI, WITH NS AND FENTANYL INFUSING, ABD DRESSING CDI, UPTON DRAINING YELLOW URINE, SEE SHIFT ASSESSMENT FOR DETAILS
[2018-06-14 08:02] LABS: MAGNESIUM - SERUM 2.1 mg/dL (1.8-2.4); PHOSPHOROUS 1.9 mg/dL (2.5-4.9)
--- NOTE | 2018-06-14 09:16 | NUR ---
PT TO OR WITH OR TEAM, 20ML FENTANYL IN INSPECTION MACHINE TENDER AND ANESTHEAISA AWARE
--- NOTE | 2018-06-14 09:40 | NUR ---
7 LAPS REMOVED FROM ABD WOUND.
--- NOTE | 2018-06-14 10:41 | NUR ---
PT RETURNED TO ROOM 1020, EXTUBATED BY AL IN ANESTHESIA AT 1030, RESTRAITNS NEVER REAPPLIED WHEN BACK TO ROOM, FAMILY AT BEDSIDE, DR GUARDADO IN UNIT AND SPOKE WITH FAMILY, AWARE OF HR SINUS TACH 120-130
--- NOTE | 2018-06-14 10:43 | OP ---
PATIENT NAME: JEFF BOJORQUEZ MEDICAL RECORD: [id number] :56 [facility]ATION[facility] ADMISSION DATE:06/12/18 SURGEON: EDNA GUARDADO MD DATE OF OPERATION: 06/14/2018 SURGEON: Edna Guardado MD PREOPERATIVE DIAGNOSES: Intra-abdominal hemorrhage, medical coagulopathy from Xarelto, history of bariatric surgical procedure times 2, and acute blood loss anemia. POSTOPERATIVE DIAGNOSES: Intra-abdominal hemorrhage, medical coagulopathy from Xarelto, history of bariatric surgical procedure times 2, and acute blood loss anemia. ANESTHESIA: General. COMPLICATIONS: None. SPECIMENS: Seven lap pads were removed from the previous abdominal operation. BLOOD LOSS: Minimal. OPERATIVE COURSE: After consent was obtained, the patient was taken to the operating room and placed in supine position on the operating table. General anesthesia was given. The abdominal laura were removed. The abdomen was prepped and draped in typical sterile fashion. The abdominal cavity appeared clean and dry. The 7 laparotomy sponges that were used for intraoperative packing and control of hemorrhage removed without complication. The abdominal cavity was then irrigated with 2 liters of warm normal saline. There was no active bleeding noted. The previous area of dissection was packed with Surgicel. The abdominal incision was closed with a #1 looped PDS. Skin was closed with laura. At the end of the case, all needle and instrument counts were correct. No complications occurred. The patient was transferred to the ICU in stable condition. TRANSINT:[id number] Voice Confirmation ID: [id number] DOCUMENT ID: [id number] EDNA GUARDADO MD at 1043 CC: [id number] DICTATION DATE: 06/14/18 1022 GAME BIRD FARMER: 06/14/18 1037 ADM IN [facility] [address] [place] [address]
--- NOTE | 2018-06-14 11:20 | NUR ---
1100 APPROX 4X1 INCH AMOUNT OF BLOOD ON DRESSING, MARKED AND TIMED, 1115 BLOOD NOTED TO HAVE INCREASED APPROX 1 SQ INCH UPWARD, PAGED DR GUARDADO AND AWAITING CALL BACK, HR 108 BP 129/67, PT CONTINUES TO BE ABLE TO FOLLOW COMMANDS AND CONTINUES TO BE LETHARGIC FROM SURGERY
--- NOTE | 2018-06-14 11:28 | NUR ---
received call back from or, tech relayed message to dr mills, no orders at this time,
--- NOTE | 2018-06-14 13:14 | NUR ---
O2 WEANED FROM 10L SIMPLE MASK TO 6L NC
--- NOTE | 2018-06-14 13:40 | NUR ---
spoke with dr mills, if dressing becomes saturated, ok to change, ok to use j tube for meds but otherwise leave to gravity, pt stated she had a bath this am and doesnt want another
--- NOTE | 2018-06-14 15:25 | NUR ---
Consult for home tube feeding recommendations: Once medically feasible to use J-tube, recommend Osmolite 1.0 @ 20mL/hour. Advance by 10mL q 8 hours until goal rate of 70mL/hour is reached Water flush at 10mL/hour Do not check residuals This TF regimen provides 1680 calories, 74gm protein and 1654mL water RD following
--- NOTE | 2018-06-14 17:41 | NUR ---
1400 ABD DRESSING AND CVL DRESSING CHANGED 1700 SMALL AMOUNT OF ICE CHIPS GIVEN AND TOLERATED WELL, DENIES PAIN, REPOSITIONED WITH BED AND PILLOWS U8RTHVM THROUGHOUT DAY, NO FURTHER DRAINAGE PRESENT ON DRESSING, WILL CONTINUE TO MON ITOR
--- NOTE | 2018-06-14 19:30 | NUR ---
PT DISORIENTED TO TIME, ANSWERS MOST QUESTIONS CORRECTLY. MOVES ALL EXTREMITIES AGAINST GRAVITY, ANTENNA MACHINE OPERATOR EQUAL, TONGUE MIDLINE. SHALLOW RESPIRATIONS, LUNG SOUNDS CLEAR/DIMINISHED. SPO2 97 ON 6L O2. S1S2 HEARD, PERIPHERAL PULSES PRESENT. BOWEL SOUNDS ABSENT. ABD DRSG CDI, J TUBE INTACT WITH GREEN DRAINAGE PRESENT. UPTON CATH INTACT. PT REPOSITIONED WITH PROMINENCES BRIDGED. ICE CHIPS PROVIDED. VSS, CALL LIGHT AND BEDSIDE TABLE WITHIN PT REACH. CPOC.
--- NOTE | 2018-06-14 21:45 | NUR ---
UPTON CARE COMPLETED AT THIS TIME.
--- NOTE | 2018-06-14 23:30 | NUR ---
REASSESSMENT COMPLETED, NO NEW CHANGES AT THIS TIME. PT REPOSITIONED WITH PROMINENCES BRIDGED. PARTIAL LINEN CHANGE COMPLETE. VSS, CALL LIGHT AND BEDSIDE TABLE WITHIN PT REACH. CPOC.
[2018-06-15] VITALS (12 sets, daily range): BP systolic 101–140; BP diastolic 54–82
--- NOTE | 2018-06-15 01:40 | NUR ---
PT RESTING QUIETLY AT THIS TIME WITH VSS. PT REPOSITIONED SELF INDEPENDENTLY. CALL LIGHT WITHIN PT REACH. CPOC.
--- NOTE | 2018-06-15 03:30 | NUR ---
REASSESSMENT COMPLETE, NO NEW CHANGES AT THIS TIME. PT REPOSITIONED FOR COMFORT WITH PROMINENCES BRIDGED. ORAL CARE COMPLETED. VSS, DENIES NEEDS. CALL LIGHT AND BEDSIDE TABLE WITHIN PT REACH. CPOC.
[2018-06-15 05:11] LABS: BASOPHILS 0.1 % (0-2); EOSINOPHILS 0.1 % (0-7); LYMPHOCYTES 15.3 % (15-50); MCH 28.7 pg (26.0-34.0); MCHC 33.3 g/dL (31.0-37.0); MEAN PLATELET VOLUME 9.3 fL (7.4-10.4); MONOCYTES 5.6 % (2-11); NEUTROPHILS 77.9 % (40-80); RBC 3.14 10x6/uL (4.00-5.40); RDW 15.4 % (11.5-14.5)
[2018-06-15 05:17] LABS: PLATELET COUNT 129 10x3/uL (130-400)
[2018-06-15 05:24] LABS: CALCIUM 7.8 mg/dL (8.5-10.1); CARBON DIOXIDE 28.7 mmol/L (21.0-32.0); POTASSIUM - SERUM 3.7 mmol/L (3.5-5.1)
[2018-06-15 05:30] LABS: CREATININE - SERUM 1.3 mg/dL (0.6-1.3)
--- NOTE | 2018-06-15 06:00 | NUR ---
PT REPOSITIONED FOR COMFORT. VSS, DENIES NEEDS. CALL LIGHT AND BEDSIDE TABLE WITHIN PT REACH. CPOC.
--- NOTE | 2018-06-15 08:52 | NUR ---
0700 PT RECIEVED ALERT AND CONFUSED TO TIME, REORIENTED EASILY, O2 6L NC, R SUBCLAVAIAN CVL DRESSING CDI WITH NS 50ML/HR, HR SINUS TACH, ABD MIDLINE INCISION, LAP SITES AND J TUBE DRESSINGS CDI, J TUBE TO GRAVITY DRAINING, UPTON DRAINING YELLOW URINE, MORPHINE GIVEN PER EMAR FOR PAIN, CALL LIGHT WITHIN REACH 0852 AM MEDS TOLERATED WELL, PT CONTINUES TO COMPLAIN OF NAUSEA BUT WANTS ZOFRAN INSTEAD OF PHENERGAN IM, ICE CHIPS HELD AND CLARIFIED WITH DR GUARDADO AND DR GUARDADO OKAYED ICE CHIPS, AWARE OF NAUSEA AND GAVE ORDER TO TRANSFER TO FLOOR
--- NOTE | 2018-06-15 09:17 | NUR ---
OSMALITE ORDERED FROM [facility] IN DIETARY, FEEDING PUMP ORDERED FROM [facility] IN MATERIALS
--- NOTE | 2018-06-15 10:17 | NUR ---
BATH AND LINEN CHANGE DONE, SEEN BY PT AND OT, CALLED REPORT TO LORETA PT TO TRANSFER TO [phone]
--- NOTE | 2018-06-15 11:01 | NUR ---
PT RECIEVED TO 2206 VIA W/C FROM ICU. RESP EVEN AND UNLABORED. O2 @ 2L NC IN PLACE. IV TO RIGHT CHEST WITH NS @ 50 ML/HR INFUSING VIA PUMP. SITE WITHOUT REDNESS OR EDEMA. DRESSING TO ABDOMEN INTACT. GTUBE IN PLACE AND DRAINING GREEN TO GRAVITY. F/C PATENT. REPORTS PAIN 04/16 AT THIS TIME. ORIENTED TO ROOM AND CL. CL WITHIN REACH. ENCOURAGED TO CALL WITH NEEDS. CONTINUE POC
--- NOTE | 2018-06-15 12:02 | MORECARE ---
CASE MANAGEMENT DISCHARGE SUMMARY PATIENT: JEFF BOJORQUEZ UNIT: [id number] ADM DATE: 06/12/18 AGE: 58 : 56 SEX: F ROOM/BED: D.2207 AUTHOR: SUZE CARREON PHYSICIAN: REFERRING PHYSICIAN: EDNA GUARDADO MD DATE OF SERVICE: 06/15/18 Discharge Plan Patient Name: JEFF BOJORQUEZ Facility: [facility]:[place] : 1960 Planned Disposition: Home with Home Health Anticipated Discharge Date: Discharge Date: Expected LOS: Initial Reviewer: [email or web address] Initial Review Date: 06/15/2018 Generated: 06/15/18 1:02 pm DCPIA - Discharge Planning Initial Assessment Updated by [email or web address]: Keke Gaspar on 06/15/18 12:01 pm * Is the patient Alert and Oriented? Yes * How many steps to enter\exit or inside your home? * PCP ERASMO * Pharmacy [facility] * Preadmission Environment Home with Family * ADLs Independent * Other Equipment 02@HS, WALKER, GLUCOMETER, SHOWER CHAIR * List name and contact numbers for known caregivers / representatives who currently or will assist patient after discharge: SURINDER BOJORQUEZ - SPOUSE- [phone] LUL BOJORQUEZ - SON - [phone] * Verbal permission to speak to the caregivers and representatives has been obtained from the patient. Yes * Community resources currently utilized None * Additional services required to return to the preadmission environment? No * Can the patient safely return to the preadmission environment? Yes * Has this patient been hospitalized within the prior 30 days at any hospital? No Patient Name: JEFF BOJORQUEZ Page [id number] at 1202 All edits/amendments must be made on the electronic document DICTATION DATE: 06/15/18 1202 ORTHOPEDIC DESIGNER: FREDA 06/15/18 1202 RPT#: [id number] DC DATE: STATUS: ADM IN [facility] [address] [place] [address] END OF REPORT
--- NOTE | 2018-06-15 12:13 | NUR ---
OT NOTE: PT SEEN PRIOR TO DC TO FLOOR. PT REQUESTING ICE CHIPS, HOWEVER, NURSING REPORTED INCREASED NAUSEA THIS AM AND WANTS TO HOLD ON ICE CHIPS FOR A BIT. PT DOING WELL. ABLE TO PERFORM BED MOB INCLUDING SUPINE TO SIT WITH MIN ASSIST; SIT TO STAND WITH MIN ASSIST; AMB IN ROOM WITH MIN/CGA. PT STILL SLIGHTLY CONFUSED AND CONTINUALLY FIDGITING WITH IV LINES THROUGHOUT ENTIRE TMT. EXPLAINED TO PT THAT I HAVE EVERYTHING OUT OF HER WAY, BUT SHE CONTINUES TO MESS WITH ALL THE CORDS. ASSISTED PT TO CHAIR; PROVIDED WITH BASIN OF WATER. PT ABLE TO WASH FACE, HANDS, UPPER BODY AND LEGS WITH CUES TO STAY FOCUSED ON TASK. SHE BATHED SEVERAL AREAS TWICE SHE DID NOT REMEMBER DOING IT. ABLE TO RUBY SOCKS WITH MIN ASSIST; GOWN WITH MIN ASSIST. PT WANTS TO RETURN HOME WITH HH SERVICES. COLLEEN PAZ, OTR/L
--- NOTE | 2018-06-15 12:17 | MORECARE ---
CASE MANAGEMENT DISCHARGE SUMMARY PATIENT: JEFF BOJORQUEZ UNIT: [id number] ADM DATE: 06/12/18 AGE: 58 : 56 SEX: F ROOM/BED: D.8500 AUTHOR: VELMA,DOC PHYSICIAN: REFERRING PHYSICIAN: EDNA GUARDADO MD DATE OF SERVICE: 06/15/18 Discharge Plan Patient Name: JEFF BOJORQUEZ Facility: [facility]:[place] : 1960 Planned Disposition: Home with Home Health Anticipated Discharge Date: Discharge Date: Expected LOS: Initial Reviewer: [email or web address] Initial Review Date: 06/15/2018 Generated: 06/15/18 1:17 pm Comments DCP- Discharge Planning Updated by [email or web address]: Keke Gaspar on 06/15/18 11:[address] Patient Name: JEFF BOJORQUEZ Admission Status: Elective Accout number: [id number] Admission Date: 06-12-2018 : 1960 Admission Diagnosis:DYSPHAGIA, UNSPECIFIED Attending: EDNA GUARDADO Current LOS: 3 Anticipated DC Date: Planned Disposition: Home with Home Health Primary Insurance: [place]ID [place] Discharge Planning Comments: CM met with patient at bedside after explaining CM role and verbal consent obtained. Patient states she lives at home with her (Abdno) and plans on returning there upon discharge. Patient states she has home 02 , walker, glucometer, and shower chair. Patient states her [employer] company is on [employer] in [place]. Patient states she has had home health services in the past but doesn't have it currently. [facility] signed for #1 [facility]. Patient states she will need help with her feeding tube when she gets home. and son are currently at bedside and discussed Home Health options. CM will continue to follow and assist with discharge planning / needs. Taker Out: Keke Gaspar DCPIA - Discharge Planning Initial Assessment Updated by [email or web address]: Keke Gaspar on 06/15/18 12:01 pm * Is the patient Alert and Oriented? Yes * How many steps to enter\exit or inside your home? * PCP ERASMO * Pharmacy [facility] * Preadmission Environment Home with Family * ADLs Independent * Other Equipment 02@HS, WALKER, GLUCOMETER, SHOWER CHAIR * List name and contact numbers for known caregivers / representatives who currently or will assist patient after discharge: ABDON BOJORQUEZ - SPOUSE- [phone] LUL BOJORQUEZ - SON - [phone] * Verbal permission to speak to the caregivers and representatives has been obtained from the patient. Yes * Community resources currently utilized None * Additional services required to return to the preadmission environment? No * Can the patient safely return to the preadmission environment? Yes * Has this patient been hospitalized within the prior 30 days at any hospital? No Last DP export: 06/15/18 11:02 am Patient Name: JEFF BOJORQUEZ Page [phone] at 1217 All edits/amendments must be made on the electronic document DICTATION DATE: 06/15/18 1216 ENGINEER BOOSTER AND EXHAUSTER: FREDA 06/15/18 1216 RPT#: [id number] DC DATE: STATUS: ADM IN [facility] [address] [place] [address] END OF REPORT
--- NOTE | 2018-06-15 15:08 | NUR ---
NUTRITION F/U SPOKE WITH DR. GUARDADO, RECEIVED VERBAL ORDER TO START TUBE FEEDS. NURSING MESSEAGE ENTERED AND TUBE FEED ORDERS WRITTEN. OSMOLITE 1.0 MARTHA WITH GOAL RATE 65 CC/HR TO PROVIDE 1654 KCAL, [address] FOLLOWING
--- NOTE | 2018-06-15 16:39 | NUR ---
OT NOTE: PT COMPLETED BED MOB AND ADL MOB WITH MIN A AND EXTENSIVE CUES. PT EXHIBITS MILD CONFUSION. PT COMPLETED GROOMING TASKS WITH CGA/MIN A. THANK YOU, SARAH ANDREW
--- NOTE | 2018-06-15 19:30 | NUR ---
REC'D IN BED WITH EYES CLOSED EASILY AROUSED WHEN NAME IS CALLED. RESP EVEN AND UNLABORED WITH NO DISTRESS NOTED. ASSESSMENT COMPLETED. C/L IN REACH AT BEDSIDE.
[2018-06-16 00:23] VITALS: BP 114/68
--- NOTE | 2018-06-16 00:28 | NUR ---
I have reviewed this patient and I concur with the Shift Assessment completed by the Licensed Practical Nurse today this shift.
[2018-06-16 05:19] VITALS: BP 142/92
[2018-06-16 08:25] VITALS: BP 137/77
[2018-06-16 08:56] LABS: HEMOGLOBIN 8.9 g/dL (12-16); MCH 28.8 pg (26.0-34.0); MCV 87.4 fL (80.0-100.0); MEAN PLATELET VOLUME 9.1 fL (7.4-10.4); RBC 3.09 10x6/uL (4.00-5.40); RDW 14.8 % (11.5-14.5); WBC 11.5 10x3/uL (4.8-10.8)
[2018-06-16 08:57] LABS: PLATELET COUNT 203 10x3/uL (130-400)
[2018-06-16 08:59] LABS: ANION GAP 8.6 mmol/L (8-16); CALCIUM 8.4 mg/dL (8.5-10.1); CARBON DIOXIDE 29.7 mmol/L (21.0-32.0); CREATININE - SERUM 1.1 mg/dL (0.6-1.3); POTASSIUM - SERUM 3.3 mmol/L (3.5-5.1)
[2018-06-16 09:20] LABS: EOSINOPHILS 2 % (0-7); LYMPHOCYTES 19 % (15-50); MONOCYTES 2 % (2-11); NEUTROPHILS 74 % (40-80); PLATELET ESTIMATE NORMAL
--- NOTE | 2018-06-16 09:49 | MORECARE ---
CASE MANAGEMENT DISCHARGE SUMMARY PATIENT: JEFF BOJORQUEZ UNIT: [id number] ADM DATE: 06/12/18 AGE: 58 : 56 SEX: F ROOM/BED: D.5588 AUTHOR: VELMA,DOC PHYSICIAN: REFERRING PHYSICIAN: EDNA GUARDADO MD DATE OF SERVICE: 06/16/18 Discharge Plan Patient Name: JEFF BOJORQUEZ Facility: [facility]:[place] : 1960 Planned Disposition: Home with Home Health Anticipated Discharge Date: Discharge Date: Expected LOS: Initial Reviewer: [email or web address] Initial Review Date: 06/15/2018 Generated: 06/16/18 10:49 am Comments DCP- Discharge Planning Updated by [email or web address]: Keke Gaspar on 06/15/18 11:[address] Patient Name: JEFF BOJORQUEZ Admission Status: Elective Accout number: [id number] Admission Date: 06-12-2018 : 1960 Admission Diagnosis:DYSPHAGIA, UNSPECIFIED Attending: EDNA GUARDADO Current LOS: 3 Anticipated DC Date: Planned Disposition: Home with Home Health Primary Insurance: [place]ID [place] Discharge Planning Comments: CM met with patient at bedside after explaining CM role and verbal consent obtained. Patient states she lives at home with her (Abdon) and plans on returning there upon discharge. Patient states she has home 02 , walker, glucometer, and shower chair. Patient states her [employer] company is on [employer] in [place]. Patient states she has had home health services in the past but doesn't have it currently. [facility] signed for #1 [facility]. Patient states she will need help with her feeding tube when she gets home. and son are currently at bedside and discussed Home Health options. CM will continue to follow and assist with discharge planning / needs. Medical Records Analyst: Keke Gaspar DCPIA - Discharge Planning Initial Assessment Updated by [email or web address]: Keke Gaspar on 06/15/18 12:01 pm * Is the patient Alert and Oriented? Yes * How many steps to enter\exit or inside your home? * PCP ERASMO * Pharmacy [facility] * Preadmission Environment Home with Family * ADLs Independent * Other Equipment 02@HS, WALKER, GLUCOMETER, SHOWER CHAIR * List name and contact numbers for known caregivers / representatives who currently or will assist patient after discharge: ABDON BOJORQUEZ - SPOUSE- [phone] LUL BOJORQUEZ - SON - [phone] * Verbal permission to speak to the caregivers and representatives has been obtained from the patient. Yes * Community resources currently utilized None * Additional services required to return to the preadmission environment? No * Can the patient safely return to the preadmission environment? Yes * Has this patient been hospitalized within the prior 30 days at any hospital? No External Providers External Provider: [facility] Next Contact Date: Service Request Date: Service Type: Resolution: Reviewer: Comments: Last DP export: 06/15/18 11:17 am Patient Name: JEFF BOJORQUEZ Page [phone] at 0949 All edits/amendments must be made on the electronic document DICTATION DATE: 06/16/18947 OPHTHALMIC TECHNICIAN APPRENTICE: FREDA 06/16/18947 RPT#: [id number] DC DATE: STATUS: ADM IN [facility] [address] [place] [address] END OF REPORT
--- NOTE | 2018-06-16 11:54 | NUR ---
OT NOTE: PT DOING VERY WELL. REMAINS IMPULSIVE WITH DECREASED SAFETY AWARENESS, BUT NOT CONFUSED OR DISORIENTED. MAY BE MED RELATED. PT STATES THAT SHE TAKES HYDROCODONE AT HOME, BUT IS UNSURE WHAT SHE IS GETTING HERE. STATES IT MAKES HER FEEL FOGGY. ABLE TO AMB WITH WALKER AND MIN ASSIST X 100+ FT. TRANSFERRED TO TOILET WITH MIN ASSIST; TRANSFERRED IN AND OUT OF BED WITH MIN ASSIST; TRANSFERS TO CHAIR WITH MIN ASSIST. REQUIRED ASSIST FOR LE DRESSING DUE TO PAIN IN ABD AREA. STATES THAT SHE IS MORE SORE TODAY THAN YESTERDAY. ABLE TO PERFORM GROOMING TASKS WITH SET UP. COLLEEN PAZ, OTR/L
[2018-06-16 12:45] VITALS: BP 119/64
--- NOTE | 2018-06-16 15:15 | NUR ---
OT NOTE: PT COMPLETED SUPINE TO SIT WITH SBA/SPV. PT COMPLETED EOB SITTING WITH SBA. PT COMPLETED BUE AROM AXS NOT TO EXCEED 90 DEGREES. PT COMPLETED GROOMING WITH SET UP AT EOB. THANK YOU, SARAH ANDREW
--- NOTE | 2018-06-16 15:17 | MORECARE ---
CASE MANAGEMENT DISCHARGE SUMMARY PATIENT: JEFF BOJORQUEZ UNIT: [id number] ADM DATE: 06/12/18 AGE: 58 : 56 SEX: F ROOM/BED: D.2203 AUTHOR: VELMA,DOC PHYSICIAN: REFERRING PHYSICIAN: EDNA GUARDADO MD DATE OF SERVICE: 06/16/18 Discharge Plan Patient Name: JEFF BOJORQUEZ Facility: [facility]:[place] : 1960 Planned Disposition: Home with Home Health Anticipated Discharge Date: Discharge Date: Expected LOS: Initial Reviewer: [email or web address] Initial Review Date: 06/15/2018 Generated: 06/16/18 4:17 pm Comments DCP- Discharge Planning Updated by [email or web address]: Ngoc Garcia on 06/16/18 2:[address] I called Ramona with [facility] she will accept the patient on Tuesday for start of service. Althea Bowman will be here for teaching today. The first 10 days of supplies with come from [facility] via model home sales greeter, then monthly deliveries with be UPS to home via regional distribution. When patient is discharged will need to call [phone] to let them know and model home sales greeter will deliver on tuesday. [facility] will see on Tuesday. DCP- Discharge Planning Updated by [email or web address]: Keke Gaspar on 06/15/18 11:[address] Patient Name: JEFF BOJORQUEZ Admission Status: Elective Accout number: [id number] Admission Date: 06-12-2018 : 1960 Admission Diagnosis:DYSPHAGIA, UNSPECIFIED Attending: EDNA GUARDADO Current LOS: 3 Anticipated DC Date: Planned Disposition: Home with Home Health Primary Insurance: MEDICAID [place] Discharge Planning Comments: CM met with patient at bedside after explaining CM role and verbal consent obtained. Patient states she lives at home with her (Abdon) and plans on returning there upon discharge. Patient states she has home 02 , walker, glucometer, and shower chair. Patient states her [employer] company is on [employer] in [place]. Patient states she has had home health services in the past but doesn't have it currently. LUIS signed for #1 [facility]. Patient states she will need help with her feeding tube when she gets home. and son are currently at bedside and discussed Home Health options. CM will continue to follow and assist with discharge planning / needs. Chicken Cleaner: Kekedarrick Carrascocy WARNER - Discharge Planning Initial Assessment Updated by [email or web address]: Keke Gaspar on 06/15/18 12:01 pm * Is the patient Alert and Oriented? Yes * How many steps to enter\exit or inside your home? * PCP ERASMO * [facility] * Preadmission Environment Home with Family * ADLs Independent * Other Equipment 02@HS, WALKER, GLUCOMETER, SHOWER CHAIR * List name and contact numbers for known caregivers / representatives who currently or will assist patient after discharge: ABDON BOJORQUEZ - SPOUSE- [phone] LUL Paris SON - [phone] * Verbal permission to speak to the caregivers and representatives has been obtained from the patient. Yes * Community resources currently utilized None * Additional services required to return to the preadmission environment? No * Can the patient safely return to the preadmission environment? Yes * Has this patient been hospitalized within the prior 30 days at any hospital? No External Providers [facility] Next Contact Date: Service Request Date: Service Type: Resolution: Reviewer: Comments: Last DP export: 06/16/18 8:49 a Patient Name: JEFF BOJORQUEZ Page 15189 at 1517 All edits/amendments must be made on the electronic document DICTATION DATE: 06/16/181516 MORPHOLOGIST: FREDA 06/16/181516 RPT#: [id number] DC DATE: STATUS: ADM IN [facility] [address] [place] [address] END OF REPORT
--- NOTE | 2018-06-16 15:37 | MORECARE ---
CASE MANAGEMENT DISCHARGE SUMMARY PATIENT: JEFF BOJORQUEZ UNIT: [id number] ADM DATE: 06/12/18 AGE: 58 : 56 SEX: F ROOM/BED: D.2208 AUTHOR: VELMA,DOC PHYSICIAN: REFERRING PHYSICIAN: EDNA GUARDADO MD DATE OF SERVICE: 06/16/18 Discharge Plan Patient Name: JEFF BOJORQUEZ Facility: [facility]:[place] : 1960 Planned Disposition: Home with Home Health Anticipated Discharge Date: Discharge Date: Expected LOS: Initial Reviewer: [email or web address] Initial Review Date: 06/15/2018 Generated: 06/16/18 4:37 pm Comments DCP- Discharge Planning Updated by [email or web address]: Ngoc Garcia on 06/16/18 2:[address] I called Ramona with [facility] she will accept the patient on Tuesday for start of service. Althea Bowman will be here for teaching today. The first 10 days of supplies with come from [facility] via fur machine operator, then monthly deliveries with be UPS to home via regional distribution. When patient is discharged will need to call [phone] to let them know and fur machine operator will deliver on tuesday. [facility] will see on Tuesday. DCP- Discharge Planning Updated by [email or web address]: Keke Gaspar on 06/15/18 11:[address] Patient Name: JEFF BOJORQUEZ Admission Status: Elective Accout number: [id number] Admission Date: 06-12-2018 : 1960 Admission Diagnosis:DYSPHAGIA, UNSPECIFIED Attending: EDNA GUARDADO Current LOS: 3 Anticipated DC Date: Planned Disposition: Home with Home Health Primary Insurance: MEDICAID [place] Discharge Planning Comments: CM met with patient at bedside after explaining CM role and verbal consent obtained. Patient states she lives at home with her (Abdon) and plans on returning there upon discharge. Patient states she has home 02 , walker, glucometer, and shower chair. Patient states her [employer] company is on [employer] in [place]. Patient states she has had home health services in the past but doesn't have it currently. LUIS signed for #1 [facility] #2 [facility]. Patient states she will need help with her feeding tube when she gets home. and son are currently at bedside and discussed Home Health options. CM will continue to follow and assist with discharge planning / needs. Registered Nurse Cardiac: Keke WARNER - Discharge Planning Initial Assessment Updated by [email or web address]: Keke Gaspar on 06/15/18 12:01 pm * Is the patient Alert and Oriented? Yes * How many steps to enter\exit or inside your home? * PCP ERASMO * Pharmacy [facility] * Preadmission Environment Home with Family * ADLs Independent * Other Equipment 02@HS, WALKER, GLUCOMETER, SHOWER CHAIR * List name and contact numbers for known caregivers / representatives who currently or will assist patient after discharge: ABDON BOJORQUEZ - SPOUSE- [phone] LUL BOJORQUEZ - SON - [phone] * Verbal permission to speak to the caregivers and representatives has been obtained from the patient. Yes * Community resources currently utilized None * Additional services required to return to the preadmission environment? No * Can the patient safely return to the preadmission environment? Yes * Has this patient been hospitalized within the prior 30 days at any hospital? No Last DP export: 06/16/18 2:17 p Patient Name: JEFF BOJORQUEZ Page 72502 at 1537 All edits/amendments must be made on the electronic document DICTATION DATE: 06/16/181536 WALL MIRROR DEPARTMENT SUPERVISOR: FREDA 06/16/181536 RPT#: [id number] DC DATE: STATUS: ADM IN [facility] [address] [place] [address] END OF REPORT
--- NOTE | 2018-06-16 15:49 | NUR ---
DRESSING CHANGED TO MIDLINE. TUBE FEEDING CHANGED BAGS/LINES PER PROTOCOL RATE IS 65 ML / H. RESIDUAL WAS NIL. TM
[2018-06-16 16:40] VITALS: BP 158/81
--- NOTE | 2018-06-16 19:15 | NUR ---
AAOX4. FAMILY IN ROOM. DENIES PAIN AT THIS TIME. ABDOMEN SOFT TO PALPATION. TUBE FEEDINGS CURRENTLY AT 50. WILL INCREASE PER ORDER. CHECKED RESIDUAL FOR PLACEMENT. ABDOMINAL INCISION TO THE RIGHT UPPER QUADRANT WITH DRESSING CDI. LAP SITES WITHOUT REDNESS. ABDOMEN TENDER TO TOUCH. RIGHT SUB CLAV CENTRAL LINE. DRESSING ADHERED TO SKIN. UPTON CATHETER DRAINING YELLOW URINE. CALL LIGHT IN HAND.
[2018-06-16 20:00] VITALS: BP 132/65
[2018-06-17 03:00] VITALS: BP 142/70
--- NOTE | 2018-06-17 03:28 | NUR ---
I AGREE WITH HAND DRILLER ASSESSMENT.
[2018-06-17 05:55] LABS: BASOPHILS 0.1 % (0-2); EOSINOPHILS 3.1 % (0-7); HEMATOCRIT 27.6 % (36.0-48.0); HEMOGLOBIN 9.2 g/dL (12-16); IMMATURE GRANULOCYTES 3.8 % (0-5); LYMPHOCYTES 15.7 % (15-50); MCH 28.9 pg (26.0-34.0); MCHC 33.3 g/dL (31.0-37.0); MCV 86.8 fL (80.0-100.0); MEAN PLATELET VOLUME 9.3 fL (7.4-10.4); MONOCYTES 10.6 % (2-11); NEUTROPHILS 66.7 % (40-80); RBC 3.18 10x6/uL (4.00-5.40); RDW 14.6 % (11.5-14.5); WBC 10.8 10x3/uL (4.8-10.8)
[2018-06-17 05:56] LABS: ANION GAP 8.3 mmol/L (8-16); CALCIUM 8.6 mg/dL (8.5-10.1); CARBON DIOXIDE 33.2 mmol/L (21.0-32.0); CREATININE - SERUM 0.9 mg/dL (0.6-1.3); MAGNESIUM - SERUM 1.9 mg/dL (1.8-2.4); PLATELET COUNT 268 10x3/uL (130-400); POTASSIUM - SERUM 3.5 mmol/L (3.5-5.1)
[2018-06-17 09:09] VITALS: BP 122/81
--- NOTE | 2018-06-17 12:26 | NUR ---
UPTON CATHETER CLAMPED FOR BLADDER TRAINING PRIOR TO REMOVAL.
[2018-06-17 12:50] VITALS: BP 156/66
--- NOTE | 2018-06-17 13:37 | NUR ---
CHECKED PATIENT Q 20 MINUTES UNTIL FELT URGE TO URINATE. PATIENT FELT URGE AT 1330. UPTON REMOVED. 1300 OUTPUT.
--- NOTE | 2018-06-17 14:30 | NUR ---
PATIENT ASSISTED BACK TO BED WITH MINIMAL ASSIST. RUQ INCISION WITH MODERATE DRAINAGE. DRESSING CHANGED WITH 4X4'S AND COVERED WITH MEDIPORE TAPE. STAPLED LAP SITES DRAINING ON RIGHT SIDE IN ABD SKIN FOLD AND ON SIDE. BANDAIDS CHANGED DUE TO LEAKING THROUGH.
[2018-06-17 14:55] LABS: CKMB 0.4 U/L (0.0-3.6); CREATINE KINASE 138 UL (21-215); TROPONIN-I < 0.017 ng/mL (0.000-0.060)
[2018-06-17 17:26] VITALS: BP 131/72
--- NOTE | 2018-06-17 17:52 | NUR ---
ASSISTED PATIENT TO BR. URINATED SUCCESSFULLY. RUQ ABD INCISION AND SITE IN ABD FOLD SOAKED THROUGH. DRESSING CHANGED WITH 4X4'S AND MEDIPORE TAPE.
[2018-06-17 17:57] VITALS: BP 131/72
--- NOTE | 2018-06-17 18:40 | NUR ---
I have reviewed this patient and I concur with the Shift Assessment completed by the Licensed Practical Nurse today this shift.
--- NOTE | 2018-06-17 19:35 | NUR ---
ENTERED ROOM TO ADMINISTER PT MEDICATION. PT WAS FINISHING BREATHING TREATMENT AND STATES THAT SHE SWALLOWED SOME OF THE TREATMENT MEDICINE WHEN SHE SAT HER HEAD BACK. SPOKE WITH RT AND THEY ARE AWARE. WHILE IN ROOM PT STATED SHE FELT NAUSEATED. ASKED FOR PAIN MEDICATION. ADMINISTERED PER ORDER. PROVIDED EMESIS BAG. DOOR OPEN TO WATCH PT FROM NURSES STATION.
[2018-06-17 20:15] VITALS: BP 167/76
[2018-06-17 20:16] LABS: CKMB 0.5 U/L (0.0-3.6); CREATINE KINASE 128 UL (21-215); TROPONIN-I < 0.017 ng/mL (0.000-0.060)
--- NOTE | 2018-06-18 | NUR ---
DRESSING CHANGE PROVIDED UPPER RIGHT QUADRANT INCISION. AMBULATES WITH ASSIST TO BATHROOM. VOIDING WITH NO ISSUES. NO BM AT THIS TIME. CALL LIGHT IN REACH.
[2018-06-18 00:20] VITALS: BP 120/81
[2018-06-18 01:50] LABS: BASOPHILS 0.2 % (0-2); EOSINOPHILS 2.1 % (0-7); HEMATOCRIT 26.7 % (36.0-48.0); HEMOGLOBIN 8.9 g/dL (12-16); IMMATURE GRANULOCYTES 7.6 % (0-5); LYMPHOCYTES 18.2 % (15-50); MCHC 33.3 g/dL (31.0-37.0); MEAN PLATELET VOLUME 8.8 fL (7.4-10.4); MONOCYTES 10.8 % (2-11); NEUTROPHILS 61.1 % (40-80); PLATELET COUNT 292 10x3/uL (130-400); RBC 3.07 10x6/uL (4.00-5.40); RDW 14.5 % (11.5-14.5); WBC 12.4 10x3/uL (4.8-10.8)
[2018-06-18 02:04] LABS: CALC OSMOLALITY 279 mosm/kg (275-300); CALCIUM 8.4 mg/dL (8.5-10.1); CARBON DIOXIDE 29.1 mmol/L (21.0-32.0); CHLORIDE - SERUM 103 mmol/L (98-107); CKMB 0.3 U/L (0.0-3.6); CREATINE KINASE 110 UL (21-215); CREATININE - SERUM 0.8 mg/dL (0.6-1.3); GLUCOSE 166 mg/dL (74-106); POTASSIUM - SERUM 3.5 mmol/L (3.5-5.1); SODIUM 139 mmol/L (136-145); UREA NITROGEN 8 mg/dL (7-18); eGFR NON AFRICAN AMERICAN 77 mL/min (90-120)
[2018-06-18 02:05] LABS: TROPONIN-I < 0.017 ng/mL (0.000-0.060)
--- NOTE | 2018-06-18 02:56 | NUR ---
I have reviewed this patient and I concur with the Shift Assessment completed by the Licensed Practical Nurse today this shift.
[2018-06-18 05:55] VITALS: BP 177/94
--- NOTE | 2018-06-18 06:18 | NUR ---
DRESSING CHANGE PROVIDED.
[2018-06-18 08:13] VITALS: BP 170/81
--- NOTE | 2018-06-18 11:56 | NUR ---
PATIENT UP AMBULATING WITH PT. RESIDUAL CHECKED WAS 25 ML. LET DO MEDS THROUGH THE TUBE VIA MY INSTRUCTIONS TO GIVE HIM THE OPPORTUNITY TO LEARN. ADVISED HIM I WOULD SHOW HIM HOW TO CHANGE TUBES/BAGS WHEN TIME WCTM
[2018-06-18] MEDS ORDERED: LEVOFLOXACIN500 MG PO (12:20)
[2018-06-18] MEDS ORDERED: OXYCODONE HCL5 M1 PO (12:20)
[2018-06-18 12:37] VITALS: BP 144/53
--- NOTE | 2018-06-18 17:01 | MORECARE ---
CASE MANAGEMENT DISCHARGE SUMMARY PATIENT: JEFF BOJORQUEZ UNIT: [id number] ADM DATE: 06/12/18 AGE: 58 : 56 SEX: F ROOM/BED: D.0757 AUTHOR: VELMA,DOC PHYSICIAN: REFERRING PHYSICIAN: EDNA GUARDADO MD DATE OF SERVICE: 06/18/18 Discharge Plan Patient Name: JEFF BOJORQUEZ Facility: [facility]:[place] : 1960 Planned Disposition: Home with Home Health Anticipated Discharge Date: Discharge Date: 06/18/2018 Expected LOS: Initial Reviewer: [email or web address] Initial Review Date: 06/15/2018 Generated: 06/18/18 6:00 pm Comments DCP- Discharge Planning Updated by [email or web address]: Ce Bar on 06/18/18 3:[address] LATE ENTRY 1300 PATIENT HAS AN ORDER TO DISCHARGE TO HOME TODAY. TC TO [facility] REGARDING FEEDING PUMP AND TUBE FEEDING DELIVERY. REFERRED TO [facility] AT [phone]. CM WAS ADVISED THEY WERE WAITING FOR THE PATIENT'S FAMILY TO CALL THEM TO COORDINATE DELIVERY. ADRI SPOKE WITH THE . GAVE HIM THE NUMBER TO CALL TO [facility] DELIVERY. HE HAD A PUMP BUT IT WAS NOT THE CORAM PUMP. HE STATES HE ALSO HAS FEEDING. TC TO [facility]. SPOKE WITH SLEEPING CAR PORTER, KURTIS. THE PATIENT IS ON SCHEDULE FOR TUESDAY VISIT. KURTIS WILL REQUEST AN EARLY VISIT. CM ADVISED THE PT'S AND HER NURSE. CM CHECKED WITH THE PATIENT'S . HE WAS ON HOLD WITH [facility]. DCP- Discharge Planning Updated by [email or web address]: Ngoc Garcia on 06/16/18 2:[address] I called Ramona with [facility] she will accept the patient on Tuesday for start of service. Althea with [facility] will be here for teaching today. The first 10 days of supplies with come from [facility] via sofa cover inspector, then monthly deliveries with be UPS to home via regional distribution. When patient is discharged will need to call [phone] to let them know and sofa cover inspector will deliver on tuesday. [facility] will see on Tuesday. DCP- Discharge Planning Updated by [email or web address]: Keke Gaspar on 06/15/18 11:[address] Patient Name: JEFF BOJORQUEZ Admission Status: Elective Accout number: [id number] Admission Date: 06-12-2018 : 1960 Admission Diagnosis:DYSPHAGIA, UNSPECIFIED Attending: EDNA GUARDADO Current LOS: 3 Anticipated DC Date: Planned Disposition: Home with Home Health Primary Insurance: MEDICAID [place] Discharge Planning Comments: CM met with patient at bedside after explaining CM role and verbal consent obtained. Patient states she lives at home with her (Abdon) and plans on returning there upon discharge. Patient states she has home 02 , walker, glucometer, and shower chair. Patient states her [employer] company is on [employer] in [place]. Patient states she has had home health services in the past but doesn't have it currently. LUIS signed for #1 [facility]2 [facility]. Patient states she will need help with her feeding tube when she gets home. and son are currently at bedside and discussed Home Health options. CM will continue to follow and assist with discharge planning / needs. Lens Grinder: Keke Gaspar DCPIA - Discharge Planning Initial Assessment Updated by [email or web address]: Keke Gaspar on 06/15/18 12:01 pm * Is the patient Alert and Oriented? Yes * How many steps to enter\exit or inside your home? * PCP ERASMO * Pharmacy [facility] * Preadmission Environment Home with Family * ADLs Independent * Other Equipment 02@HS, WALKER, GLUCOMETER, SHOWER CHAIR * List name and contact numbers for known caregivers / representatives who currently or will assist patient after discharge: ABDON BOJORQUEZ - SPOUSE- [phone] LUL BOJORQUEZ - SON - [phone] * Verbal permission to speak to the caregivers and representatives has been obtained from the patient. Yes * Community resources currently utilized None * Additional services required to return to the preadmission environment? No * Can the patient safely return to the preadmission environment? Yes * Has this patient been hospitalized within the prior 30 days at any hospital? No Last DP export: 06/16/18 2:37 p Patient Name: JEFF BOJORQUEZ Page 57173 at 1701 All edits/amendments must be made on the electronic document DICTATION DATE: 06/18/181699 PRIVATE EQUITY ASSOCIATE: FREDA 06/18/181699 RPT#: [id number] DC DATE:06/18/18 STATUS: DIS IN [facility] [address] [facility] [place] [place] [address] END OF REPORT
--- NOTE | 2018-06-19 11:04 | MORECARE ---
CASE MANAGEMENT DISCHARGE SUMMARY PATIENT: JEFF BOJORQUEZ UNIT: [id number] ADM DATE: 06/12/18 AGE: 58 : 56 SEX: F ROOM/BED: D.0764 AUTHOR: VELMA,DOC PHYSICIAN: REFERRING PHYSICIAN: EDNA GUARDADO MD DATE OF SERVICE: 06/19/18 Discharge Plan Patient Name: JEFF BOJORQUEZ Facility: [facility]:[place] : 1960 Planned Disposition: Home with Home Health Anticipated Discharge Date: Discharge Date: 06/18/2018 Expected LOS: 0 Initial Reviewer: [email or web address] Initial Review Date: 06/15/2018 Generated: 06/19/18 12:03 pm Comments DCP- Discharge Planning Updated by [email or web address]: Ce Bar on 06/18/18 3:[address] LATE ENTRY 1300 PATIENT HAS AN ORDER TO DISCHARGE TO HOME TODAY. TC TO [facility] REGARDING FEEDING PUMP AND TUBE FEEDING DELIVERY. REFERRED TO [facility] AT [phone]. CM WAS ADVISED THEY WERE WAITING FOR THE PATIENT'S FAMILY TO CALL THEM TO COORDINATE DELIVERY. CM SPOKE WITH THE . GAVE HIM THE NUMBER TO CALL TO [facility] DELIVERY. HE HAD A PUMP BUT IT WAS NOT THE CORAM PUMP. HE STATES HE ALSO HAS FEEDING. TC TO [facility]. SPOKE WITH AGRICULTURE EXTENSION SPECIALIST, KURTIS. THE PATIENT IS ON SCHEDULE FOR TUESDAY VISIT. KURTIS WILL REQUEST AN EARLY VISIT. CM ADVISED THE PT'S AND HER NURSE. CM CHECKED WITH THE PATIENT'S . HE WAS ON HOLD WITH [facility]. DCP- Discharge Planning Updated by [email or web address]: Ngoc Garcia on 06/16/18 2:[address] I called Ramona with [facility] she will accept the patient on Tuesday for start of service. Althea with [facility] will be here for teaching today. The first 10 days of supplies with come from [facility] via microsoft bi developer, then monthly deliveries with be UPS to home via regional distribution. When patient is discharged will need to call [phone] to let them know and microsoft bi developer will deliver on tuesday. [facility] will see on Tuesday. DCP- Discharge Planning Updated by [email or web address]: Keke Gaspar on 06/15/18 11:[address] Patient Name: JEFF BOJORQUEZ Admission Status: Elective Accout number: [id number] Admission Date: 06-12-2018 : 1960 Admission Diagnosis:DYSPHAGIA, UNSPECIFIED Attending: EDNA GUARDADO Current LOS: 3 Anticipated DC Date: Planned Disposition: Home with Home Health Primary Insurance: MEDICAID [place] Discharge Planning Comments: CM met with patient at bedside after explaining CM role and verbal consent obtained. Patient states she lives at home with her (Abdon) and plans on returning there upon discharge. Patient states she has home 02 , walker, glucometer, and shower chair. Patient states her [employer] company is on [employer] in [place]. Patient states she has had home health services in the past but doesn't have it currently. LUIS signed for #1 [facility] #2 Care [facility]. Patient states she will need help with her feeding tube when she gets home. and son are currently at bedside and discussed Home Health options. CM will continue to follow and assist with discharge planning / needs. Service Crew Leader: Keke Gaspar DCPIA - Discharge Planning Initial Assessment Updated by [email or web address]: Keke Gaspar on 06/15/18 12:01 pm * Is the patient Alert and Oriented? Yes * How many steps to enter\exit or inside your home? * PCP ERASMO * Pharmacy [facility] * Preadmission Environment Home with Family * ADLs Independent * Other Equipment 02@HS, WALKER, GLUCOMETER, SHOWER CHAIR * List name and contact numbers for known caregivers / representatives who currently or will assist patient after discharge: ABDON BOJORQUEZ - SPOUSE- [phone] LUL BOJORQUEZ - SON - [phone] * Verbal permission to speak to the caregivers and representatives has been obtained from the patient. Yes * Community resources currently utilized None * Additional services required to return to the preadmission environment? No * Can the patient safely return to the preadmission environment? Yes * Has this patient been hospitalized within the prior 30 days at any hospital? No Last DP export: 06/18/18 4:01 p Patient Name: JEFF BOJORQUEZ Page 86417 at 1104 All edits/amendments must be made on the electronic document DICTATION DATE: 06/19/181102 SHIPWRIGHT HELPER: FREDA 06/19/181102 RPT#: [id number] DC DATE:06/18/18 STATUS: DIS IN [facility] [address] [place] [address] END OF REPORT
== END 2018-06-18 16:33 | disposition home or self-care (01) | DRG 326 ==
LOC: D.CVICU 08:52 → D.OPS 08:52 → D.PAN 09:00 → D.MS 13:25 → D.CVICU 16:27 → D.OPS 16:28 → D.CVICU 16:30 → D.MS 16:30
PROVIDERS: Anesthesiology; Surgery; ADMIT Surgery; ATTEND Surgery
PROC: 0DN64ZZ Release Stomach, Percutaneous Endoscopic Approach (ICD-10-PCS; 2018-06-12)
PROC: 0W3F0ZZ Control Bleeding in Abdominal Wall, Open Approach (ICD-10-PCS; 2018-06-12)
PROC: 0D164ZA Bypass Stomach to Jejunum, Percutaneous Endoscopic Approach (ICD-10-PCS; 2018-06-12)
PROC: 05H533Z Insertion of Infusion Device into Right Subclavian Vein, Percutaneous Approach (ICD-10-PCS; principal; 2018-06-12 09:00)
DX: K22.2 Esophageal obstruction (principal); E43 Unspecified severe protein-calorie malnutrition; J95.821 Acute postprocedural respiratory failure; T81.19XA Other postprocedural shock, initial encounter; D62 Acute posthemorrhagic anemia; E87.2 Acidosis; R13.10 Dysphagia, unspecified; E11.9 Type 2 diabetes mellitus without complications; Z86.711 Personal history of pulmonary embolism; I11.0 Hypertensive heart disease with heart failure; I50.9 Heart failure, unspecified; Z98.84 Bariatric surgery status

== ENCOUNTER 2018-06-20 12:48 | Emergency (ER) | payer MEDICAID ==
[~2018-06-20] VITALS: Ht 165.1 cm; Wt 77.3 kg
[~2018-06-20 12:48] MED LIST changes: +LEVOFLOXACIN500 MG PO; +OXYCODONE HCL5 M1 PO
[2018-06-20 12:52] VITALS: Ht 165.1 cm; Wt 77.3 kg
[2018-06-20] MEDS ORDERED: AMBIEN10 MG PO (12:57)
[2018-06-20 14:29] LABS: ALBUMIN 2.2 g/dL (3.4-5.0); ALKALINE PHOSPHATASE 111 U/L (46-116); ALT (SGPT) 25 U/L (10-68); BILIRUBIN - TOTAL 0.29 mg/dL (0.2-1.3); CALC OSMOLALITY 261 mosm/kg (275-300); CALCIUM 8.9 mg/dL (8.5-10.1); CARBON DIOXIDE 28.9 mmol/L (21.0-32.0); CHLORIDE - SERUM 99 mmol/L (98-107); CREATININE - SERUM 0.8 mg/dL (0.6-1.3); POTASSIUM - SERUM 3.2 mmol/L (3.5-5.1); PROTEIN - SERUM 6.6 g/dL (6.4-8.2); SODIUM 131 mmol/L (136-145); UREA NITROGEN 10 mg/dL (7-18); eGFR NON AFRICAN AMERICAN 77 mL/min (90-120)
[2018-06-20 14:31] LABS: LIPASE 104 U/L (73-393); PRO BNP 358 pg/mL (0-125); TROPONIN-I < 0.017 ng/mL (0.000-0.060)
[2018-06-20 14:36] LABS: HEMATOCRIT 27.1 % (36.0-48.0); HEMOGLOBIN 8.9 g/dL (12-16); MCH 28.6 pg (26.0-34.0); MCHC 32.8 g/dL (31.0-37.0); MCV 87.1 fL (80.0-100.0); MEAN PLATELET VOLUME 8.6 fL (7.4-10.4); RBC 3.11 10x6/uL (4.00-5.40); RDW 14.8 % (11.5-14.5); WBC 11.9 10x3/uL (4.8-10.8)
[2018-06-20 14:37] LABS: GLUCOSE 101 mg/dL (74-106)
[2018-06-20 14:44] LABS: PLATELET COUNT 512 10x3/uL (130-400)
[2018-06-20 15:22] LABS: LYMPHOCYTES 23 % (15-50); MONOCYTES 1 % (2-11); NEUTROPHILS 76 % (40-80); PLATELET ESTIMATE INCREASED
[2018-06-20 19:04] VITALS: BP 146/79
== END 2018-06-20 18:48 | disposition home or self-care (01) ==
LOC: D.ER 12:48
PROVIDERS: Family Medicine
DX: G89.18 Other acute postprocedural pain (principal); D64.9 Anemia, unspecified; K94.29 Other complications of gastrostomy

== ENCOUNTER → 2018-06-27 15:14 | Outpatient (CLI) | payer MEDICAID ==
[2018-06-20 12:52] VITALS: BMI 28.3
[~2018-06-27 15:14] MED LIST changes: +AMBIEN10 MG PO
== END | disposition home or self-care (01) ==
LOC: D.RAD 15:14
PROVIDERS: ATTEND Surgery
DX: K94.23 Gastrostomy malfunction (principal)